=== PATIENT | female | born 1990 | race Caucasian/White ===

== ENCOUNTER 2024-07-13 13:08 | Outpatient (OUT) | payer OTHER, SELFPAY ==
--- NOTE | 2024-07-13 | CONS_ITS ---
CONSULTATION DATE: 07/13/2024 TO: Dr. Russell CHIEF COMPLAINT: Includes severe right lower back pain. HISTORY OF PRESENT ILLNESS: Review of systems, past medical/surgical history were obtained and documented on the health questionnaire and is available upon request. She is a 34-year-old female who reports having a long standing history of lower back pain. She is a poor historian, but has had this for years; however, over the last 3-4 months, she has been having rapid acceleration of her pain, especially on her right side. She describes the pain as being sharp in character, increased with activities such as standing, walking, performing transitioning maneuvers. She feels most comfortable in the semi-recumbent position. She denies any change in bowel and bladder habits or new sensorimotor changes in the lower extremities. CURRENT MEDICATION: Includes ibuprofen 600 mg t.i.d. She has been on this for at least six months to one year. Lyrica 200 mg t.i.d., tizanidine 4 mg at h.s. Her SUSANNE was 43. EXAMINATION: Notable for patient having no clinical radiculopathy or myelopathy involving the lower extremities. Patient had severe pain with lumbar facet loading maneuvers on the right side from L4 through S1, with associated myofascial spasm of the erector spinae muscle on the right side. IMPRESSION: Our impression today is patient with chronic pain secondary to lumbosacral spondylosis, myalgia with spasm of the right erector spinae muscle. RECOMMENDATIONS: I recommend she undergo aquatic therapy. Discontinue tizanidine. Placed her on baclofen 10 mg pills, half a pill to one pill at h.s. and to proceed with a diagnostic right sided L4-5, L5-S1 medial branch block under fluoroscopic guidance. As part of providing excellent, safe, comprehensive care, the following was completed at our patient's visit: 1. A medication reconciliation and review to ensure accurate knowledge of current/active medications, including asking our patients to inform us about any [id number] medications or herbal remedies/nutritional supplements/alternative remedies. 2. A review to specifically ensure our patients have had annual screening for: elevated body mass index (BMI, see intake chart for exact total), tobacco use, screening for depression, and screening for unhealthy alcohol use. When screening is concerning, patients are provided with education and the specific recommendation to discuss the concerning health issue and treatment options with their primary care provider. [facility]
== END 2024-07-13 13:09 | disposition home or self-care (01) ==
PROVIDERS: PCP Family Medicine; Visit Provider Anesthesiology Pain Medicine
DX: M47.816 Spondylosis without myelopathy or radiculopathy, lumbar region (principal); M62.838 Other muscle spasm
CPT/HCPCS: G0463